=== PATIENT | female | born 1990 | race Caucasian/White ===

== ENCOUNTER 2016-11-13 15:26 | Emergency (ER) | payer BC ==
[2016-11-13 16:08] VITALS: BP 135/81
--- NOTE | 2016-11-13 16:30 | UC ---
Eye Complaint HPI - HPI Summary HPI Summary: PATIENT PRESENTS TO WITH CC OF BILATERAL EYE REDNESS SINCE THIS MORNING. SHE NOTES TO ALLERGIES WELL. SHE IS OTHERWISE HEALTHY AND DENIES SICK CONTACTS. 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 SHE DENIES UPPER RESPIRATORY ILLNESS. SHE HAS NOT TAKEN ANY MEDICATION FOR THIS AND HAS BEEN USING COLD WASH CLOTHS FOR RELIEF. SHE NOTES PURULENT DRAINAGE WORSE IN THE MORNING AND INJECTED CONJUNCTIVA. - History of Current Complaint Chief Complaint: UCEye Stated Complaint: BILATERAL EYE COMPLAINT STUFFY NOSE Time Seen by Provider: 11/13/16 16:00 Hx Obtained From: Patient Hx Last Menstrual Period: 11/05/16 ?: No Onset/Duration: Sudden Onset Timing: Constant Severity Initially: Moderate Severity Currently: Moderate Pain Intensity: 5 Pain Scale Used: 0-10 Numeric Location of Injury: Conjunctiva Character: Dull Aggravating Factor(s): Nothing Alleviating Factor(s): Nothing Associated Signs And Symptoms: Positive: Drainage (Purulent) - Risk Factors Penetrating Injury Risk Factor: Negative Globe Rupture Risk Factors: Negative Acute Glaucoma Risk Factors: Eye Inflammation Optic Artery Occlusion Risk Factors: Negative - Allergies/Home Medications Allergies/Adverse Reactions: Allergies Allergy/AdvReac Type Severity Reaction Status Date / Time Avocado Allergy Severe Anaphylatic Verified 11/13/16 16:08 Shock Peanut Oil Allergy Severe Anaphylatic Verified 11/13/16 16:08 Shock PMH/Surg Hx/FS Hx/Imm Hx Previously Healthy: Yes Respiratory History Of: Reports: Asthma - Surgical History Surgical History: None - Family History Known Family History: Negative: Diabetes - Social History Occupation: Employed Full-time Lives: With Family Alcohol Use: Occasionally Substance Use Type: None Smoking Status (MU): Never Smoked Tobacco Have You Smoked in the Last Year: No - Immunization History Most Recent Influenza Vaccination: April 2016 Review of Systems Constitutional: Negative Skin: Negative Eyes: Drainage, Eye Redness ENT: Negative Respiratory: Negative Cardiovascular: Negative Motor: Negative Neurovascular: Negative Neurological: Negative Psychological: Negative All Other Systems Reviewed And Are Negative: Yes Physical Exam Triage Information Reviewed: Yes Appearance: Well-Appearing, No Pain Distress, Well-Nourished Vital Signs: Initial Vital Signs Temp 98.1 F 11/13/16 16:02 Pulse 59 11/13/16 16:02 Resp 14 11/13/16 16:02 BP 135/81 11/13/16 16:02 Pulse Ox 99 11/13/16 16:02 Vital Signs Reviewed: Yes Eyes: Positive: Conjunctiva Inflamed, Discharge ENT Exam: Normal ENT: Positive: Normal ENT inspection Dental Exam: Normal Neck exam: Normal Neck: Positive: Supple, Nontender, No Lymphadenopathy Respiratory: Positive: Chest non-tender, Lungs clear Cardiovascular Exam: Normal Cardiovascular: Positive: RRR Musculoskeletal Exam: Normal Musculoskeletal: Positive: Strength Intact Neurological Exam: Normal Neurological: Positive: Alert Psychological: Positive: Age Appropriate Behavior Skin Exam: Normal Eye Complaint Course/Dx - Course Course Of Treatment: PATIENT PRESENTS TO WITH CC OF BILATERAL CONJUNCTIVAL INJECTION SINCE THIS MORNING. SHE IS A CONTACT WEARER. SHE IS INSTRUCTED TO THROW OUT CONTACTS AND RESUME USE AFTER 5-7 DAYS OF ANTIBIOTIC USE. USE WARM WASH CLOTHS TO THE AREA. TAKE ALLERGY MEDICATION FOR CO-COMITTENT ALLERGIC CONJUNCTIVITIS AND USE ERYTHROMYCIN OINTMENT FOR RELIEF OF BACTERIAL COMPONENT. - Differential Dx/Diagnosis Differential Diagnosis/HQI/PQRI: Conjunctivitis, Keratitis, Uveitis Provider Diagnoses: BACTERIAL CONJUNCTIVITIS Discharge - Discharge Plan Condition: Stable Disposition: HOME Prescriptions: Erythromycin OPTH OINT* 1 applic BOTH EYES TID #1 ophth.oint Erythromycin TOPICAL GEL* [Erythromycin OPTH OINT*] 1 applic TOPICAL TID #1 oint Patient Education Materials: Conjunctivitis (ED) Forms: *Work Release Referrals: DEVAUGHN Wall [Primary Care Provider] - Additional Instructions: Instill 1 ribbon in both eyes three times daily
== END 2016-11-13 16:35 | disposition home or self-care (01) ==
LOC: UCCORT 15:26
DX: H10.33 Unspecified acute conjunctivitis, bilateral (principal); J45.909 Unspecified asthma, uncomplicated
CPT/HCPCS: 99212; G0463

== ENCOUNTER 2017-08-23 16:30 | Emergency (ER) | payer BC ==
[2017-08-23 19:51] VITALS: BP 117/63
--- NOTE | 2017-08-23 20:09 | UC ---
UC General HPI - HPI Summary HPI Summary: pt reports having a mild head cold for a week . now she has sudden bodyaches, fever, headache and nausea with some vomiting. no cough, sob, diarrhea, dysuria or abdominal pain. - History of Current Complaint Chief Complaint: UCGeneralIllness Stated Complaint: FLU SYMPTOMS Time Seen by Provider: 08/23/17 20:02 Hx Obtained From: Patient Hx Last Menstrual Period: 08/06/17 Timing: Constant Pain Intensity: 7 Aggravating: nothing Alleviating: nothing Associated Signs & Symptoms: Positive: Fever, Headache, Nausea, Vomiting. Negative: Cough, Chest Pain, Diarrhea, Dysuria - Allergy/Home Medications Allergies/Adverse Reactions: Allergies Allergy/AdvReac Type Severity Reaction Status Date / Time MS Avocado [Avocado] Allergy Severe Anaphylatic Verified 11/13/16 16:08 Shock MS Peanut Oil [Peanut Oil] Allergy Severe Anaphylatic Verified 11/13/16 16:08 Shock PMH/Surg Hx/FS Hx/Imm Hx Previously Healthy: Yes - Surgical History Surgical History: None - Family History Known Family History: Negative: Diabetes - Social History Occupation: Employed Full-time Lives: With Family Alcohol Use: Occasionally Substance Use Type: None Smoking Status (MU): Never Smoked Tobacco Have You Smoked in the Last Year: No - Immunization History Most Recent Influenza Vaccination: April 2016 Vaccination Up to Date: Yes Review of Systems Constitutional: Fever, Chills Skin: Negative Eyes: Negative ENT: Sinus Congestion Respiratory: Negative Cardiovascular: Negative Gastrointestinal: Vomiting, Nausea Genitourinary: Negative Motor: Negative Neurovascular: Negative Musculoskeletal: Myalgia Neurological: Headache Psychological: Negative Is Patient Immunocompromised?: No All Other Systems Reviewed And Are Negative: Yes Physical Exam Triage Information Reviewed: Yes Appearance: Well-Appearing Vital Signs: Initial Vital Signs Temp 99.6 F 08/23/17 19:47 Pulse 87 08/23/17 19:47 Resp 16 08/23/17 19:47 BP 117/63 08/23/17 19:47 Pulse Ox 98 08/23/17 19:47 Vital Signs Reviewed: Yes Eyes: Positive: Conjunctiva Clear ENT: Positive: Pharynx normal, Nasal drainage - clear, TMs normal Neck: Positive: Supple, Nontender, No Lymphadenopathy Respiratory: Positive: Lungs clear, Normal breath sounds, No respiratory distress Cardiovascular: Positive: RRR, No Murmur Abdomen Description: Positive: Nontender, No Organomegaly, Soft Bowel Sounds: Positive: Present Musculoskeletal: Positive: ROM Intact, No Edema Neurological: Positive: Alert Psychological: Positive: Normal Response To Family, Age Appropriate Behavior Skin Exam: Normal Diagnostics - Laboratory Diagnostic Studies Completed/Ordered: rapid flu B+ Course/Dx - Course Course Of Treatment: rapid flu +, will tx tamiflu - Differential Dx - Multi-Symptom Provider Diagnoses: Influenza B+ Discharge - Discharge Plan Condition: Stable Disposition: HOME Prescriptions: Oseltamivir CAP* [Tamiflu CAP*] 75 mg PO BID 5 Days #10 cap Patient Education Materials: Influenza (ED) Forms: *Work Release Referrals: DEVAUGHN Wall [Primary Care Provider] - 7 Days
[2017-08-23] MEDS ORDERED: Oseltamivir CAP* 75 MG CAP PO ONE (20:32)
== END 2017-08-23 20:41 | disposition home or self-care (01) ==
LOC: UCCORT 16:30
DX: J10.1 Influenza due to other identified influenza virus with other respiratory manifestations (principal); Z91.018 Allergy to other foods
CPT/HCPCS: 87502; 99212; A9270-GY; G0463